=== PATIENT | male | born 1990 | race Two or more races ===

== ENCOUNTER 2021-04-02 16:23 | Emergency (ER) | payer SELFPAY ==
[~2021-04-02] VITALS: Ht 177.8 cm; Wt 100.0 kg
[2021-04-02 16:28] VITALS: BP 160/96
[2021-04-02] MEDS ORDERED: ONDANSETRON HCL 4 MG/2 ML VIAL IVP ONE (16:30)
[2021-04-02] MEDS ORDERED: MORPHINE SULFATE 4 MG/ML SYRINGE IVP ONE (16:30)
[2021-04-02] MEDS ORDERED: PERTUSS(ACELL),DIPH,TET VAC/PF 0.5 ML SYRINGE IM. ONE ×2 (16:30→16:31)
[2021-04-02] MEDS ORDERED: SODIUM CHLORIDE 0.9% 50 ML ONE (16:31)
[2021-04-02 16:47] LABS: ALANINE AMINOTRANSFERASE 207 U/L (12-78); ALBUMIN 4.4 g/dL (3.4-5.0); ALKALINE PHOSPHATASE 108 U/L (46-116); ANION GAP 16 mmol/L (8-16); ASPARTATE AMINOTRANSFERASE 94 U/L (15-37); BASOPHILS % (AUTO) 0.5 % (0.0-2.0); BILIRUBIN,TOTAL 0.2 mg/dL (0.1-1.0); CALCIUM, TOTAL 8.7 mg/dL (8.8-10.5); CARBON DIOXIDE 22 mmol/L (22-29); CHLORIDE 102 mmol/L (98-107); CREATININE 1.18 mg/dL (0.60-1.30); EOSINOPHILS % (AUTO) 0.4 % (1.0-6.0); GLOMERULAR FILTR. RATE CALC > 60 mL/min (>60); GLUCOSE,RANDOM 136 mg/dL (70-110); HEMATOCRIT 44.8 % (41-53); HEMOGLOBIN 15.2 g/dL (13.5-17.5); LYMPHOCYTES # (AUTO) 4.7 K/uL (1.0-4.8); LYMPHOCYTES % (AUTO) 48.5 % (22.0-44.0); MEAN CORPUSCULAR HEMOGLOBIN 29.3 pg (26.0-34.0); MEAN CORPUSCULAR HGB CONC 33.8 G/dL (31.0-37.0); MEAN CORPUSCULAR VOLUME 87 fL (80-100); MONOCYTES # (AUTO) 0.7 K/uL (0.1-1.0); MONOCYTES % (AUTO) 7.5 % (2.0-9.0); NEUTROPHILS # (AUTO) 4.2 K/uL (1.8-7.7); NEUTROPHILS % (AUTO) 43.1 % (40.0-70.0); PLATELET COUNT (AUTO) 375 K/uL (150-450); RED BLOOD CELL COUNT(AUTO) 5.18 MIL/uL (4.50-5.90); RED CELL DISTRIBUTION WIDTH 13.8 % (11.5-14.5); SODIUM SERUM 140 mmol/L (136-145); TOTAL PROTEIN, SERUM 8.7 g/dL (6.4-8.2); UREA NITROGEN, BLOOD 8 mg/dL (7-18)
[2021-04-02 16:48] LABS: POTASSIUM 2.8 mmol/L (3.5-5.1)
== END 2021-04-02 16:45 | disposition short-term general hospital (02) ==
LOC: EDBD 16:23 → EMS 16:23
DX: S71.131A Puncture wound without foreign body, right thigh, initial encounter (principal); W33.01XA Accidental discharge of shotgun, initial encounter; Y93.89 Activity, other specified; Y92.89 Other specified places as the place of occurrence of the external cause; Y99.8 Other external cause status
CPT/HCPCS: 36415; 73590; 80053; 85025; 86850; 86900; 86901; 90471; 90715; 96374; 96375; 99291; J0690; J2270; J2405; J7050